=== PATIENT | female | born 1975 | race African-American/Black ===

== ENCOUNTER 2019-07-29 10:26 | Emergency (ER) | payer SELFPAY ==
[~2019-07-29] VITALS: Ht 162.6 cm; Wt 99.8 kg
--- OUTSIDE RECORDS SUMMARY | 2019-07-29 10:29 | XMS REPORT ---
[facility] Phone Unavailable Care Team Providers Care Art[employer] Foli[employer] Arranger Name Role Phone Unavailable Unavailable Problems This patient has no known problems. Allergies, Adverse Reactions, Alerts This patient has no known allergies or adverse reactions. Medications This patient has no known medications. Encounters Start Date/Time End Date/Time Encounter Type Admission Type Attending [facility] Care Department Encounter ID 2017-06-23 00:00:00 2017-06-23 00:00:00 [facility] [id number] 2017-05-26 00:00:00 2017-05-26 00:00:00 [facility] [id number] 2017-05-26 00:00:00 2017-05-26 00:00:00 [facility] [id number] 2017-05-21 14:15:37 2017-05-21 14:15:37 [facility] [id number] 2017-05-21 14:09:49 2017-05-21 14:09:49 [facility] [id number] 2017-05-21 00:00:00 2017-05-21 00:00:00 [facility] [id number] 2017-05-20 00:00:00 2017-05-20 00:00:00 [facility] [id number] 2017-05-12 15:24:12 2017-05-12 15:24:12 [facility] [id number] 2017-05-12 13:33:05 2017-05-12 13:33:05 [facility] [id number] 2017-04-21 00:00:00 2017-04-21 00:00:00 [facility] [id number] 2017-04-17 10:44:34 2017-04-17 10:44:34 [facility] [id number] 2017-04-17 00:00:00 2017-04-17 00:00:00 [facility] [id number] 2017-04-14 08:48:39 2017-04-14 08:48:39 [facility] [id number] 2017-04-13 00:00:00 2017-04-13 00:00:00 [facility] [id number] 2017-04-10 06:57:00 2017-04-10 06:57:00 Inpatient [facility] [id number] 2017-04-10 00:00:00 2017-04-10 00:00:00 [facility] [id number] 2017-02-25 10:38:34 2017-02-25 10:38:34 [facility] [id number] 2017-02-25 00:00:00 2017-02-25 00:00:00 [facility] [id number] 2017-02-13 00:00:00 2017-02-13 00:00:00 [facility] [id number] 2017-02-10 00:00:00 2017-02-10 00:00:00 [facility] [id number] 2017-01-21 00:00:00 2017-01-21 00:00:00 [facility] [id number] 2017-01-19 00:00:00 2017-01-19 00:00:00 [facility] [id number] 2017-01-05 00:00:00 2017-01-05 00:00:00 [facility] [id number] 2016-12-30 10:24:15 2016-12-30 10:24:15 [facility] [id number] 2016-12-30 00:00:00 2016-12-30 00:00:00 [facility]patient [facility] [id number] 2016-12-22 13:52:17 2016-12-22 13:52:17 [facility] [id number] 2016-11-21 09:08:18 2016-11-21 09:08:18 [facility] [id number] 2016-11-14 11:13:22 2016-11-14 11:13:22 [facility]patient [facility] [id number] 2016-11-14 09:39:56 2016-11-14 09:39:56 [facility] [id number] 2016-10-29 21:32:26 2016-10-29 21:32:26 Emergency [facility] [id number] 2016-10-28 13:09:49 2016-10-28 13:09:49 [facility] [id number]
[2019-07-29] MEDS ORDERED: KETOROLAC TROMETHAMINE 30 MG/ML VIAL IV STA (10:37)
[2019-07-29 10:50] LABS: BASOPHILS % 0.3 % (0.0-1.0); EOSINOPHILS # (AUTO) 0.1 (0.0-0.4); EOSINOPHILS % 1.2 % (0.0-6.0); HEMATOCRIT 37.5 % (34.2-44.1); HEMOGLOBIN 11.7 g/dL (12.0-16.0); LYMPHOCYTES % 44.7 % (18.0-39.1); MEAN CORPUSCULAR HEMOGLOBIN 27.7 pg (28-32); MEAN CORPUSCULAR HGB CONC 31.2 g/dL (31-35); MEAN CORPUSCULAR VOLUME 88.7 fL (81-99); MONOCYTES # (AUTO) 0.4 (0.2-0.8); MONOCYTES % 4.7 % (4.4-11.3); NEUTROPHILS # (AUTO) 4.3 (2.1-6.9); NEUTROPHILS % 48.9 % (38.7-80.0); PLATELET COUNT 318 x10e3/uL (140-360); RED BLOOD COUNT 4.23 x10e6/uL (3.6-5.1); RED CELL DISTRIBUTION WIDTH 13.9 % (11.7-14.4)
[2019-07-29 11:06] LABS: INR 0.96; PROTHROMBIN TIME 13.3 seconds (11.9-14.5)
[2019-07-29 11:07] LABS: PARTIAL THROMBOPLASTIN TIME 27.8 seconds (23.8-35.5)
[2019-07-29 11:09] LABS: PREGNANCY TEST, URINE NEGATIVE (NEGATIVE)
[2019-07-29 11:10] LABS: CLARITY,URINE CLEAR (CLEAR); COLOR,URINE YELLOW (YELLOW); LEUKOCYTE ESTERASE ,URINE NEGATIVE (NEGATIVE); NITRITE,URINE NEGATIVE (NEGATIVE); PROTEIN,URINE DIPSTICK NEGATIVE (NEGATIVE)
[2019-07-29 11:11] LABS: BILIRUBIN,URINE NEGATIVE (NEGATIVE); KETONES,URINE NEGATIVE (NEGATIVE); URINE UROBILINOGEN 0.2 mg/dL (0.2 - 1)
[2019-07-29 11:13] LABS: ALANINE AMINOTRANSFERASE 25 IU/L (0-55); ALBUMIN/GLOBULIN RATIO 1.5 (0.8-2.0); ALKALINE PHOSPHATASE 75 IU/L (40-150); ANION GAP 12.9 mmol/L (8-16); BLOOD UREA NITROGEN 6 mg/dL (7-26); BUN/CREATININE RATIO 7 (6-25); CALCIUM 9.1 mg/dL (8.4-10.2); CARBON DIOXIDE 23 mmol/L (22-29); CHLORIDE 107 mmol/L (98-107); CREATINE KINASE 397 IU/L (29-168); CREATININE, SERUM 0.92 mg/dL (0.57-1.11); EST GLOMERULAR FILTRATION RATE > 60 ML/MIN (60-); GLUCOSE 151 mg/dL (74-118); MAGNESIUM 1.8 MG/DL (1.3-2.1); POTASSIUM 3.9 mmol/L (3.5-5.1); SODIUM 139 mmol/L (136-145)
[2019-07-29 11:30] LABS: BACTERIA,URINE MODERATE /HPF; EPITHELIAL CELLS,URINE MANY /LPF; RBC,URINE 0-5 /HPF (0-5); WBC,URINE (MAN) 0-5 /HPF (0-5)
--- NOTE | 2019-07-29 11:52 | Diagnostic Imaging Report ---
EXAMINATION: PA and lateral views of the chest. COMPARISON: None CLINICAL HISTORY: Chest pain DISCUSSION: Lines/tubes: None. Lungs: The lungs are well inflated and clear. No pneumonia or pulmonary edema. Pleura: No pleural effusion or pneumothorax. Heart and mediastinum: The cardiomediastinal silhouette is normal. Bones and soft tissues: No acute bony abnormalities. IMPRESSION: No acute cardiopulmonary abnormalities. Signed by: Dr. Robert Lopez M.D. on 07/29/2019 11:49 AM
== END 2019-07-29 13:00 | disposition home or self-care (01) ==
LOC: ER 10:26
DX: R07.89 Other chest pain (principal); M94.0 Chondrocostal junction syndrome [Tietze]; E07.9 Disorder of thyroid, unspecified
CPT/HCPCS: 36415; 71046; 80053; 81001; 81025; 82550; 82553; 83735; 84443; 84484; 85025; 85610; 85730; 93005; 99284

== ENCOUNTER 2019-08-10 09:19 | Emergency (ER) | payer SELFPAY ==
[~2019-08-10] VITALS: Ht 162.6 cm; Wt 99.8 kg
[2019-08-10] MEDS ORDERED: LIDOCAINE 1% W/EPINEPHRINE 20 ML VIAL INJ ONE (09:45)
[2019-08-10 10:22] VITALS: BP 162/99
[2019-08-10] MEDS ORDERED: LEVOFLOXACIN 500 MG TAB PO ONE (10:45)
[2019-08-10] MEDS ORDERED: HYDROCODONE/APAP 10MG-325MG TAB PO ONE (10:45)
[2019-08-10] MEDS ORDERED: TRIMETHOPRIM/SULFAMETHOXAZOLE 160-800 MG TAB PO ONE (10:45)
[2019-08-10] MEDS ORDERED: LEVOFLOXACIN 250 MG TAB PO ONE (10:45)
[2019-08-10 11:29] LABS: PREGNANCY TEST, URINE NEGATIVE (NEGATIVE)
[2019-08-10 11:34] LABS: CLARITY,URINE SL CLOUDY (CLEAR); COLOR,URINE YELLOW (YELLOW); LEUKOCYTE ESTERASE ,URINE NEGATIVE (NEGATIVE); NITRITE,URINE NEGATIVE (NEGATIVE); PROTEIN,URINE DIPSTICK 1+ (NEGATIVE)
[2019-08-10 11:35] LABS: BILIRUBIN,URINE NEGATIVE (NEGATIVE); KETONES,URINE TRACE (NEGATIVE); URINE UROBILINOGEN 1 mg/dL (0.2 - 1)
[2019-08-10 11:36] LABS: BACTERIA,URINE RARE /HPF; EPITHELIAL CELLS,URINE RARE /LPF; RBC,URINE >50 /HPF (0-5); WBC,URINE (MAN) 0-5 /HPF (0-5)
== END 2019-08-10 11:34 | disposition home or self-care (01) ==
LOC: ER 09:19
DX: L05.01 Pilonidal cyst with abscess (principal); E03.9 Hypothyroidism, unspecified
CPT/HCPCS: 81001; 81025; 99283

== ENCOUNTER 2022-10-22 07:08 | Observation (INO) | payer BC ==
[2022-10-22] VITALS (7 sets, daily range): BP systolic 123–145; BP diastolic 70–97; PULSE 68–89; RESP 17–18; TEMP 97.3–98.8; O2SAT 100
[~2022-10-22] VITALS: Ht 162.6 cm; Wt 109.3 kg
[2022-10-22] MEDS ORDERED: SODIUM CHLORIDE 0.9% 500ML 500 ML IV ONE (07:30)
[2022-10-22 07:32] LABS: BASOPHILS # (AUTO) 0.1 (0.0-0.1); BASOPHILS % 0.7 % (0.0-1.0); EOSINOPHILS # (AUTO) 0.2 (0.0-0.4); EOSINOPHILS % 2.1 % (0.0-6.0); HEMATOCRIT 37.2 % (34.2-44.1); HEMOGLOBIN 11.3 g/dL (12.0-16.0); LYMPHOCYTES # (AUTO) 3.4 (1.0-3.2); LYMPHOCYTES % 47.3 % (18.0-39.1); MEAN CORPUSCULAR HGB CONC 30.4 g/dL (31-35); MEAN CORPUSCULAR VOLUME 85.7 fL (81-99); MONOCYTES # (AUTO) 0.4 (0.2-0.8); MONOCYTES % 5.8 % (4.4-11.3); NEUTROPHILS # (AUTO) 3.1 (2.1-6.9); NEUTROPHILS % 43.8 % (38.7-80.0); PLATELET COUNT 307 x10e3/uL (140-360); RED BLOOD COUNT 4.34 x10e6/uL (3.6-5.1); RED CELL DISTRIBUTION WIDTH 14.3 % (11.7-14.4)
[2022-10-22] MEDS ORDERED: Morphine 2mg Syringe 2 MG/ML SYR IV STA (07:35)
[2022-10-22] MEDS ORDERED: ONDANSETRON HCL INJ 2MG/ML 2ML 2 MG/ML VIAL IV STA (07:35)
[2022-10-22] MEDS ORDERED: NITROGLYCERIN 2% OINT 1 GM PKT TOP ONE (07:45)
[2022-10-22 07:49] LABS: INR 0.83; PROTHROMBIN TIME 11.9 seconds (11.9-14.5)
[2022-10-22 07:50] LABS: PARTIAL THROMBOPLASTIN TIME 25.5 seconds (23.8-35.5)
[2022-10-22 08:00] LABS: ALANINE AMINOTRANSFERASE 19 IU/L (0-55); ALBUMIN 3.9 g/dL (3.5-5.0); ALBUMIN/GLOBULIN RATIO 1.4 (0.8-2.0); ALKALINE PHOSPHATASE 78 IU/L (40-150); ANION GAP 12.1 mmol/L (8-16); BLOOD UREA NITROGEN 6 mg/dL (7-26); BUN/CREATININE RATIO 6 (6-25); CALCIUM 8.9 mg/dL (8.4-10.2); CARBON DIOXIDE 20 mmol/L (22-29); CHLORIDE 107 mmol/L (98-107); CREATININE, SERUM 1.01 mg/dL (0.57-1.11); GLUCOSE 251 mg/dL (74-118); LIPASE 40 U/L (8-78); MAGNESIUM 1.7 MG/DL (1.3-2.1); POTASSIUM 4.1 mmol/L (3.5-5.1); SODIUM 135 mmol/L (136-145)
[2022-10-22] MEDS ORDERED: CLOPIDOGREL BISULFATE 75 MG TAB PO ONE (08:45)
[2022-10-22] MEDS ORDERED: Morphine 2mg Syringe 2 MG/ML SYR IV PRN (08:45)
[2022-10-22] MEDS ORDERED: NITROGLYCERIN 0.4 MG SUBL SL PRN (08:45)
[2022-10-22] MEDS ORDERED: ONDANSETRON HCL INJ 2MG/ML 2ML 2 MG/ML VIAL IV PRN (08:45)
[2022-10-22] MEDS: ASPIRIN 81 MG ENTERIC COATED PO SCH (09:00)
[2022-10-22] MEDS: METOPROLOL TARTRATE 25 MG TAB PO SCH ×2 (09:00→21:29)
[2022-10-22] MEDS: FAMOTIDINE 20 MG/2 ML VIAL IV SCH ×2 (09:49→21:29)
[2022-10-22 10:00] LABS: CHOL/HDL RATIO 5.5 (3.0-3.6)
[2022-10-22] MEDS ORDERED: ASPIRIN 81 MG CHEW TAB PO ONE (10:00)
[2022-10-22 10:16] LABS: CREATINE KINASE 340 IU/L (29-168)
[2022-10-22] MEDS: HYDROCHLOROTHIAZIDE 25 MG TAB PO SCH (10:57)
[2022-10-22] MEDS: LOSARTAN POTASSIUM 100 MG TAB PO SCH (10:57)
[2022-10-22] MEDS ORDERED: POTASSIUM CHLORIDE 20 MEQ TAB CR PO PRN (12:15)
[2022-10-22] MEDS ORDERED: DOCUSATE SODIUM 100 MG CAP PO PRN (12:15)
[2022-10-22] MEDS ORDERED: DIPHENHYDRAMINE HCL 25 MG CAP PO PRN (12:15)
[2022-10-22] MEDS ORDERED: DEXTROSE 50% SYRINGE 50 ML IV PRN ×2 (12:15→12:30)
[2022-10-22] MEDS ORDERED: SIMETHICONE 80 MG CHEW PO PRN (12:15)
[2022-10-22] MEDS ORDERED: HYDRALAZINE HCL 20 MG/ML VIAL IV PRN (12:15)
[2022-10-22] MEDS ORDERED: BENZONATATE 100 MG CAP PO PRN (12:15)
[2022-10-22] MEDS ORDERED: MELATONIN 5 MG TABLET PO PRN (12:15)
[2022-10-22] MEDS ORDERED: ALBUTEROL/IPRATROPIUM 3 ML NEB NEB PRN (12:15)
[2022-10-22] MEDS ORDERED: ACETAMINOPHEN 325 MG TAB PO PRN (12:15)
[2022-10-22] MEDS ORDERED: LIDOCAINE 4% PATCH TP PRN (12:15)
[2022-10-22] MEDS: GLIPIZIDE 5 MG TAB PO SCH (13:26)
[2022-10-22] MEDS ORDERED: INSULIN LISPRO 100 UNIT/1 ML 3ML VIAL SQ SCH (16:30)
[2022-10-22] MEDS: ENOXAPARIN SOD INJ 40 MG/0.4 ML SYR SC SCH (16:52)
[2022-10-22 18:57] LABS: CREATINE KINASE MB 1.9 ng/mL (0-5.0)
[2022-10-22] MEDS ORDERED: ATORVASTATIN 40 MG TAB PO SCH (21:00)
[2022-10-23] VITALS (8 sets, daily range): BP systolic 124–177; BP diastolic 83–110; PULSE 69–99; RESP 18–19; TEMP 97.4–98.8; O2SAT 98–100
[2022-10-23 04:58] LABS: BASOPHILS # (AUTO) 0.1 (0.0-0.1); BASOPHILS % 0.6 % (0.0-1.0); EOSINOPHILS # (AUTO) 0.2 (0.0-0.4); EOSINOPHILS % 1.9 % (0.0-6.0); HEMATOCRIT 35.8 % (34.2-44.1); HEMOGLOBIN 10.9 g/dL (12.0-16.0); LYMPHOCYTES # (AUTO) 3.7 (1.0-3.2); LYMPHOCYTES % 44.1 % (18.0-39.1); MEAN CORPUSCULAR HEMOGLOBIN 25.6 pg (28-32); MEAN CORPUSCULAR HGB CONC 30.4 g/dL (31-35); MEAN CORPUSCULAR VOLUME 84.2 fL (81-99); MONOCYTES # (AUTO) 0.6 (0.2-0.8); MONOCYTES % 6.5 % (4.4-11.3); NEUTROPHILS # (AUTO) 3.9 (2.1-6.9); NEUTROPHILS % 46.7 % (38.7-80.0); PLATELET COUNT 270 x10e3/uL (140-360); RED BLOOD COUNT 4.25 x10e6/uL (3.6-5.1); RED CELL DISTRIBUTION WIDTH 14.5 % (11.7-14.4)
[2022-10-23 05:19] LABS: ALBUMIN 3.7 g/dL (3.5-5.0); ALBUMIN/GLOBULIN RATIO 1.3 (0.8-2.0); CREATININE, SERUM 1.1 mg/dL (0.57-1.11)
[2022-10-23 05:55] LABS: MAGNESIUM 1.8 MG/DL (1.3-2.1); PHOSPHORUS 3.5 MG/DL (2.3-4.7)
[2022-10-23 06:15] LABS: THYROID STIMULATING HORMONE 2.69 uIU/mL (0.350-4.940)
[2022-10-23 06:18] LABS: CREATINE KINASE 199 IU/L (29-168)
[2022-10-23] MEDS ORDERED: PANTOPRAZOLE SOD 40 MG TABEC PO SCH (07:30)
[2022-10-23] MEDS: METOPROLOL TARTRATE 25 MG TAB PO SCH (09:00)
[2022-10-23] MEDS: FAMOTIDINE 20 MG/2 ML VIAL IV SCH (09:00)
[2022-10-23] MEDS ORDERED: REGADENOSON 0.4 MG/5 ML SYR IV ONE (10:15)
[2022-10-23] MEDS ORDERED: ONDANSETRON HCL 4 MG ORAL DISINTEGRATING TAB PO PRN (13:45)
[2022-10-23 14:37] LABS: CREATINE KINASE 232 IU/L (29-168)
[2022-10-23] MEDS: GLIPIZIDE 5 MG TAB PO SCH (15:17)
[2022-10-23] MEDS: LOSARTAN POTASSIUM 100 MG TAB PO SCH (15:18)
[2022-10-23] MEDS: ASPIRIN 81 MG ENTERIC COATED PO SCH (15:18)
[2022-10-23] MEDS: HYDROCHLOROTHIAZIDE 25 MG TAB PO SCH (15:19)
[2022-10-23] MEDS: ENOXAPARIN SOD INJ 40 MG/0.4 ML SYR SC SCH (15:20)
[2022-10-23] MEDS ORDERED: HYDRALAZINE HCL 20 MG/ML VIAL IV ONE (16:00)
[2022-10-23] MEDS ORDERED: ESIDRIX25 MG PO (18:01)
[2022-10-23] MEDS ORDERED: METFORMIN HCL500 MG PO (18:01)
[2022-10-23] MEDS ORDERED: ASPIRIN EC81 MG PO (18:01)
[2022-10-23] MEDS ORDERED: LOPRESSOR25 MG PO (18:01)
[2022-10-23] MEDS ORDERED: COZAAR100 MG PO (18:01)
[2022-10-23] MEDS ORDERED: GLIPIZIDE5 MG PO (18:01)
[2022-10-23] MEDS ORDERED: ATORVASTATIN CA40 MG PO (18:01)
[2022-10-23] MEDS ORDERED: FAMOTIDINE 20 MG TAB PO SCH (21:00)
== END 2022-10-23 18:35 | disposition home or self-care (01) ==
LOC: ER 07:16 → ERHOLD 08:51 → MED/SURG 10:17
PROVIDERS: ADMIT Internal Medicine; ATTEND Internal Medicine
DX: R07.89 Other chest pain (principal); E11.69 Type 2 diabetes mellitus with other specified complication; E78.5 Hyperlipidemia, unspecified; I10 Essential (primary) hypertension; Z20.822 Contact with and (suspected) exposure to COVID-19; Z68.41 Body mass index [BMI] 40.0-44.9, adult; Z79.4 Long term (current) use of insulin
CPT/HCPCS: 36415 ×2; 71045; 78452; 80053 ×2; 80061; 82550 ×2; 82553 ×2; 82948 ×2; 83036; 83690; 83735 ×2; 83880; 84100; 84443; 84484 ×2; 84702; 85025 ×2; 85379; 85610; 85730; 93005; 93017; 93306; 94799 ×2; 99285; A9502; C9113; G0378 ×2; J0360; J1650 ×2; J2270; J2405; J2785; J7040; U0002

== ENCOUNTER 2025-01-20 02:12 | Emergency (ER) | payer BC, OTHER ==
[~2025-01-20] VITALS: Ht 162.6 cm; Wt 96.6 kg
[~2025-01-20 02:12] MED LIST: ASPIRIN EC81 MG PO; ATORVASTATIN CA40 MG PO; COZAAR100 MG PO; ESIDRIX25 MG PO; GLIPIZIDE5 MG PO; LOPRESSOR25 MG PO; METFORMIN HCL500 MG PO
[2025-01-20 02:36] LABS: BASOPHILS % 0.3 % (0.0-1.0); EOSINOPHILS % 1.5 % (0.0-6.0); LYMPHOCYTES % 43.5 % (18.0-39.1); MONOCYTES % 7.0 % (4.4-11.3); NEUTROPHILS % 47.5 % (38.7-80.0); RED CELL DISTRIBUTION WIDTH 13.5 % (11.7-14.4)
[2025-01-20 02:47] LABS: CORONAVIRUS COVID-19 AG NEGATIVE (NEGATIVE)
[2025-01-20 02:56] LABS: EST GLOMERULAR FILTRATION RATE 61.0 ML/MIN (>=60)
[2025-01-20 03:52] VITALS: PULSE 74; RESP 20; TEMP 98.1; O2SAT 100
== END 2025-01-20 04:00 | disposition home or self-care (01) ==
LOC: ER 02:29
DX: R06.00 Dyspnea, unspecified (principal); R07.89 Other chest pain; I10 Essential (primary) hypertension; E11.65 Type 2 diabetes mellitus with hyperglycemia; E78.5 Hyperlipidemia, unspecified; E03.9 Hypothyroidism, unspecified; Z11.52 Encounter for screening for COVID-19
CPT/HCPCS: 36415; 71045; 80053; 82948; 83880; 84484; 85025; 93005; 99284